=== PATIENT | female | born 2005 | race Caucasian/White ===

== ENCOUNTER 2023-06-23 00:15 | Emergency (ER) | payer OTHER, SELFPAY ==
[2023-06-23 00:15] VITALS: BP 104/62; PULSE 79; RESP 16; O2SAT 98
[2023-06-23 00:19] VITALS: BP 111/65; PULSE 117; RESP 20; TEMP 36.6; O2SAT 100
[2023-06-23 00:30] VITALS: BP 112/81; PULSE 78; RESP 19; O2SAT 100
--- NOTE | 2023-06-23 00:47 | ECG_ITS ---
Measurements Intervals [place] Rate: 75 P: 63 WI: 140 QRS: 74 QRSD: 84 T: 65 QT: 377 QTc: 422 Interpretive Statements SINUS RHYTHM WITH SINUS ARRHYTHMIA NORMAL ECG NO PREVIOUS ECG AVAILABLE FOR COMPARISON Electronically Signed On 06-23-2023 6:50:45 [employer] by Charles Clifton D.O.
[2023-06-23 01:00] VITALS: PULSE 90
--- NOTE | 2023-06-23 01:04 | ED.DIZZY ---
HPI - Dizziness General Chief Complaint: Dizziness Stated Complaint: Dizzy Time Seen by Provider: 06/23/23 00:45 Source: patient Mode of arrival: ambulatory Limitations: no limitations History of Present Illness HPI Narrative: This is a 17 year old female that presents to the ER for dizziness. Reports ongoing over the couple of days. Reports lightheadedness as well as room spinning dizziness. Denies vision changes, vomiting, chest pain, shortness of breath, numbness or weakness. Related Data Allergies Allergy/AdvReac Type Severity Reaction Status Date / Time No Known Allergies Allergy Verified 06/23/23 01:09 CDT Review of Systems Review of Systems: CONSTITUTIONAL: Denies fever EYES: Denies visual changes CARDIOVASCULAR: Denies chest pain, or edema. RESPIRATORY: Denies dyspnea. GASTROINTESTINAL: Denies vomiting NEUROLOGIC: Denies headache, numbness, or weakness. PSYCHIATRIC: Reports anxiety All systems reviewed & are unremarkable except as noted in HPI and below PMFSH Past Medical History Medical History (Updated 06/23/23 @ 02:33 by May Negron PA-C) History of anemia Social History Social History (Updated 06/23/23 @ 01:06 CDT by May Negron PA-C) Smoking status: Never smoker Exam Narrative: GENERAL: Well-appearing, well-nourished, and in no acute distress. HEAD: Normocephalic, atraumatic. EYES: PERRLA and EOMI. ENT: Nares clear, no rhinorrhea or epistaxis. Mucous membranes moist. Oropharynx without tonsillar hypertrophy exudate or other lesions. Bilateral TMs pearly magana non-bulging NECK: Supple. No adenopathy or masses. No JVD CHEST: Clear to auscultation. No respiratory distress. No wheezes rales or rhonchi. Very small area of redness surrounding tattoo in the center of her chest. No abnormal drainage HEART: Regular rate and rhythm. No murmur heard. Normal peripheral pulses. ABDOMEN: Soft, nontender, nondistended, normal active bowel sounds. EXTREMITIES: Normal range of motion. No edema. Strength equal in bilateral upper and lower extremities (5/5) SKIN: Warm, dry, no rash. NEURO: No focal deficits. Alert and oriented x3. Cranial nerves II through XII grossly intact. Normal [id number] PSYCH: Normal mood and affect Course Course Emergency Course: Patient reports relief of dizziness after IV fluids, Zofran and meclizine Vital Signs Vital signs: Vital Signs Temperature 97.8 F 06/23/23 00:19 Pulse Rate 117 H 06/23/23 00:19 Respiratory Rate 20 06/23/23 00:19 Blood Pressure 111/65 06/23/23 00:19 Pulse Oximetry 100 06/23/23 00:19 Oxygen Delivery Room Air 06/23/23 00:19 Temperature 97.8 F 06/23/23 00:19 Pulse Rate 90 06/23/23 01:00 CDT Respiratory Rate 20 06/23/23 00:19 Blood Pressure 111/65 06/23/23 00:19 Pulse Oximetry 100 06/23/23 00:19 Oxygen Delivery Room Air 06/23/23 00:19 MDM - Dizziness MDM Narrative Medical decision making narrative: Patient presents to the emergency department for dizziness/lightheadedness ongoing over the last couple of days. Patient is neurologically intact. Her vitals are stable. CBC shows mild normocytic anemia with hemoglobin of 11.5. Metabolic panel with mild hypokalemia with potassium of 3.3, this was replaced. Her magnesium is normal. Urine without evidence of infection. Bedside test is negative. EKG without concerning changes. Patient reports relief of dizziness after IV fluids, Zofran and meclizine. Instructed to have close follow-up with her primary provider. She was given warnings to return to the ER Was also reporting concern over a recent tattoo healing. There is no evidence of overt cellulitis at this time. Instructed to keep the area clean with soap and water and applying antibiotic ointment Differential Diagnosis Differential diagnosis: Likely benign paroxysmal positional vertigo, orthostatic hypotension and other (Dehydration, electrolyte derangement, arrhythmia) Lab Data Att
[2023-06-23 01:09] LABS: Basophils Percent Auto 0.6 % (0.2-1.2); Eosinophils Absolute Auto 0.2 K/mm3 (0-0.3); Eosinophils Percent Auto 2.1 % (0-4.4); Hematocrit 36.6 % (37.0-47.0); Hemoglobin 11.5 g/dL (12.0-15.0); Immature Granulocyte Absolute 0.02 K/mm3 (0.00-0.031); Immature Granulocyte Percent A 0.3 % (0-0.5); Lymphocytes Absolute Auto 3.35 K/mm3 (0.9-3.2); Lymphocytes Percent Auto 47.2 % (18.3-44.2); Mean Corpuscular HGB Conc 31.4 g/dl (32-36); Mean Corpuscular Hemoglobin 25.6 pg (26-34); Mean Corpuscular Volume 81.5 fl (80-100); Mean Platelet Volume 9.4 fl (7.4-10.4); Monocytes Absolute Auto 0.5 K/mm3 (0.1-0.6); Monocytes Percent Auto 6.5 % (2.6-8.5); Neutrophils Absolute Auto 3.1 K/mm3 (1.3-6.7); Neutrophils Percent Auto 43.3 % (45.5-73.1); Platelet Count Result 298 k/mm3 (150-375); Red Blood Count 4.49 M/mm3 (4.2-5.4); Red Cell Distribution Width 19.4 % (11.5-14.5); White Blood Count 7.1 K/mm3 (4.5-10.0)
[2023-06-23] MEDS: MECLIZINE HCL 25 MG TABLET PO (01:11)
[2023-06-23] MEDS: SODIUM CHLORIDE 0.9% IV 1,000 ML 999 ML IV CONT (01:11)
[2023-06-23] MEDS: ONDANSETRON INJ 4 MG/2 ML VIAL IV PUSH (01:11)
[2023-06-23 01:19] LABS: Magnesium 2.3 mg/dL (1.6-2.3)
[2023-06-23 01:28] LABS: Alanine Aminotransferase 19 U/L (6-35); Albumin Level 4.4 g/dL (3.7-5.6); Alkaline Phosphatase 89 U/L (45-116); Anion Gap 5 mmol/L (8-16); Aspartate Amino Transferase 29 U/L (14-36); Bilirubin,Total 0.5 mg/dL (0.2-1.3); Blood Urea Nitrogen 19 mg/dL (8-21); Calcium 9.3 mg/dL (8.9-10.7); Carbon Dioxide 27 mmol/L (22-30); Chloride 106 mmol/L (98-107); Estimated CRCL calculation 78 ml/min; Estimated Glomerular Filt Rate > 60; Glucose 81 mg/dL (65-110); Potassium 3.3 mmol/L (3.4-5.0); Sodium 138 mmol/L (134-143)
[2023-06-23 01:38] LABS: Appearance Urine Clear (Clear); Bacteria Urine None Seen /hpf; Bilirubin Urine Negative (Negative); Blood Urine Negative (Negative); Color Urine Yellow (Yellow); Glucose Urine UA Negative (Negative); Ketones Urine Negative (Negative); Leukocyte Esterase Ur Trace LEU/UL (Negative); Nitrate Urine Negative (Negative); Non Pathogenic Casts 0-2; Protein Urine Negative (Negative); RBC Urine 0-2 /hpf (0-2); Specific Grav Ur 1.008 (1.001-1.035); Squamous Epithelial Cell Urine None seen /hpf (Few); WBC Urine 0-5 /hpf
[2023-06-23] MEDS: LORazepam (*CRX) 0.5 MG TABLET PO (01:41)
[2023-06-23 01:43] LABS: Add Urine Microscopic? YES
[2023-06-23 01:44] VITALS: BP 107/62; PULSE 75; RESP 20; O2SAT 98
[2023-06-23] MEDS: POTASSIUM CHLORIDE 20 MEQ PACKET (FOR LIQUID) 40 MEQ PO (01:59)
== END 2023-06-23 03:07 | disposition home or self-care (01) ==
PROVIDERS: Emergency Provider Physician Assistant
DX: R42 Dizziness and giddiness (principal)
CPT/HCPCS: 36415; 80053; 81001; 81025; 83735; 85025; 93005; 96361; 96374; 99284; A9270; J2405; J7030